=== PATIENT | female | born 2000 | race Two or more races ===

== ENCOUNTER 2021-12-04 23:13 | Emergency (ER) | payer MEDICAID ==
[~2021-12-04] VITALS: Ht 162.6 cm; Wt 88.6 kg
[2021-12-04 23:13] VITALS: BP 114/71
[2021-12-05 00:15] LABS: Basophils # (auto) 0 10 ^3/uL (0-0.2); Basophils % (auto) 0.2 % (0.0-2.0); Eosinophils # (auto) 0.1 10 ^3/uL (0-0.8); Eosinophils % (auto) 1.3 % (0.0-7.0); Hematocrit 33.9 % (36.0-46.0); Hemoglobin 11.1 g/dL (12.2-16.2); Lymphocytes # (auto) 2.4 10 ^3/uL (0.4-5.4); Lymphocytes % (auto) 29.1 % (10.0-50.0); Mean Corpuscular Hgb Conc. 32.8 g/dL (32.0-36.0); Mean Corpuscular Volume 85.3 fL (80.0-100.0); Monocytes # (auto) 0.7 10 ^3/uL (0-1.3); Neutrophils # (auto) 4.9 10 ^3/uL (1.6-8.6); Neutrophils % (auto) 60.4 % (37.0-80.0); Nucleated Red Blood Cells % 0.1 %; Red Blood Cells 3.98 10^6/uL (4.0-5.20); Red Cell Distribution Width 14.1 % (11.8-14.3); White Blood Cell 8.2 10^3/uL (4.4-10.8)
[2021-12-05 00:30] LABS: Albumin 2.5 g/dL (3.4-5.0); BUN/Creatinine Ratio 18.2; Calcium 8.3 mg/dL (8.5-10.1); Potassium 3.8 mmol/L (3.5-5.1)
[2021-12-05 00:33] LABS: Bilirubin, Total 0.3 mg/dL (0.2-1.0); Total Protein 6.2 g/dL (6.4-8.2)
== END 2021-12-05 04:22 | disposition left against medical advice (07) ==
LOC: ER 23:13
DX: R07.89 Other chest pain (principal); Z53.21 Procedure and treatment not carried out due to patient leaving prior to being seen by health care provider
CPT/HCPCS: 36415; 80053; 83735; 84484; 85025; 93005

== ENCOUNTER → 2021-12-10 | Outpatient (CLI) | payer MEDICAID ==
[2021-12-10 09:33] LABS: Basophils # (auto) 0 10 ^3/uL (0-0.2); Basophils % (auto) 0.2 % (0.0-2.0); Eosinophils # (auto) 0.1 10 ^3/uL (0-0.8); Eosinophils % (auto) 1.1 % (0.0-7.0); Hematocrit 34.1 % (36.0-46.0); Hemoglobin 11.3 g/dL (12.2-16.2); Lymphocytes # (auto) 2.2 10 ^3/uL (0.4-5.4); Lymphocytes % (auto) 28.5 % (10.0-50.0); Mean Corpuscular Hemoglobin 27.9 pg (28.0-32.0); Mean Corpuscular Volume 84.5 fL (80.0-100.0); Monocytes # (auto) 0.6 10 ^3/uL (0-1.3); Monocytes % (auto) 7.4 % (0.0-12.0); Neutrophils # (auto) 4.7 10 ^3/uL (1.6-8.6); Neutrophils % (auto) 62.8 % (37.0-80.0); Red Blood Cells 4.04 10^6/uL (4.0-5.20); White Blood Cell 7.5 10^3/uL (4.4-10.8)
== END | disposition home or self-care (01) ==
LOC: LAB 08:53
PROVIDERS: ATTEND Obstetrics & Gynecology
DX: Z34.80 Encounter for supervision of other normal pregnancy, unspecified trimester (principal); Z3A.00 Weeks of gestation of pregnancy not specified
CPT/HCPCS: 36415; 82951; 85025

== ENCOUNTER → 2021-12-17 | Outpatient (CLI) | payer MEDICAID ==
[~2021-12-17] MED LIST: PREN-96 PO
[2021-12-17 10:01] LABS: Basophils # (auto) 0 10 ^3/uL (0-0.2); Basophils % (auto) 0.4 % (0.0-2.0); Eosinophils # (auto) 0.1 10 ^3/uL (0-0.8); Eosinophils % (auto) 1.4 % (0.0-7.0); Hematocrit 34.8 % (36.0-46.0); Hemoglobin 11.6 g/dL (12.2-16.2); Lymphocytes % (auto) 29.7 % (10.0-50.0); Mean Corpuscular Hgb Conc. 33.2 g/dL (32.0-36.0); Mean Corpuscular Volume 84.2 fL (80.0-100.0); Monocytes # (auto) 0.6 10 ^3/uL (0-1.3); Monocytes % (auto) 8.4 % (0.0-12.0); Neutrophils # (auto) 4.1 10 ^3/uL (1.6-8.6); Neutrophils % (auto) 60.1 % (37.0-80.0); Nucleated Red Blood Cells % 0.1 %; Red Blood Cells 4.13 10^6/uL (4.0-5.20); Red Cell Distribution Width 14.2 % (11.8-14.3); White Blood Cell 6.8 10^3/uL (4.4-10.8)
== END | disposition home or self-care (01) ==
LOC: LAB 09:48
PROVIDERS: ATTEND Obstetrics & Gynecology
DX: Z34.80 Encounter for supervision of other normal pregnancy, unspecified trimester (principal); Z3A.00 Weeks of gestation of pregnancy not specified
CPT/HCPCS: 36415; 84112; 85025

== ENCOUNTER 2021-12-18 09:03 | Observation (INO) | payer MEDICAID ==
[2021-12-18] MEDS ORDERED: PREN-96 PO (12:10)
== END 2021-12-18 12:37 | disposition home or self-care (01) ==
LOC: UNDOADMOB 10:14 → LDRP 10:14 → UNDODISOB 12:37
PROVIDERS: ADMIT Obstetrics & Gynecology; ATTEND Obstetrics & Gynecology
DX: O24.419 Gestational diabetes mellitus in pregnancy, unspecified control (principal); Z3A.35 35 weeks gestation of pregnancy
CPT/HCPCS: 59025; 76818; 81002; 82948; 82962; G0378

== ENCOUNTER 2021-12-25 09:16 | Observation (INO) | payer MEDICAID | END 2021-12-25 15:08 | disposition home or self-care (01) | LOC: LDRP 09:16 → UNDOADMOB 09:16 → LDRP 09:21 → UNDODISOB 15:08 | PROVIDERS: ADMIT Obstetrics & Gynecology; ATTEND Obstetrics & Gynecology | DX: O24.419 Gestational diabetes mellitus in pregnancy, unspecified control (principal); Z3A.36 36 weeks gestation of pregnancy | CPT/HCPCS: 59025; 76818; 81002; 82948; 82962; 94760; G0378 ==

== ENCOUNTER 2022-01-01 07:12 | Observation (INO) | payer MEDICAID | END 2022-01-01 13:38 | disposition home or self-care (01) | LOC: LDRP 11:35 | PROVIDERS: ADMIT Obstetrics & Gynecology; ATTEND Obstetrics & Gynecology | DX: O24.419 Gestational diabetes mellitus in pregnancy, unspecified control (principal); Z3A.37 37 weeks gestation of pregnancy | CPT/HCPCS: 59025; 76818; 81002; 82948; 82962; 94760; G0378 ==

== ENCOUNTER 2022-01-08 11:08 | Observation (INO) | payer MEDICAID ==
[2022-01-08] MEDS ORDERED: CEPH-322 PO (13:11)
== END 2022-01-08 13:23 | disposition home or self-care (01) ==
LOC: LDRP 11:08
PROVIDERS: ADMIT Obstetrics & Gynecology; ATTEND Obstetrics & Gynecology
DX: O24.419 Gestational diabetes mellitus in pregnancy, unspecified control (principal); O62.9 Abnormality of forces of labor, unspecified; O21.2 Late vomiting of pregnancy; O34.63 Maternal care for abnormality of vagina, third trimester; N89.8 Other specified noninflammatory disorders of vagina; Z3A.38 38 weeks gestation of pregnancy
CPT/HCPCS: 59025; 76818; 81002; 82948; 82962; G0378

== ENCOUNTER 2022-01-15 23:00 | Inpatient (IN) | payer MEDICAID ==
[~2022-01-15] VITALS: Ht 162.6 cm; Wt 93.4 kg
[~2022-01-15 23:00] MED LIST changes: +CEPH-322 PO
[2022-01-15] MEDS ORDERED: PHISODERM TOP SOLN 240ML BTL TOP PRN (23:15)
[2022-01-15] MEDS ORDERED: LIDOCAINE 2%HCL (LOCAL ANESTH.) INJ 10ml MDV IJ PRN (23:15)
[2022-01-15] MEDS ORDERED: WITCH HAZEL-GLYCERIN PAD TOP PRN (23:15)
[2022-01-15] MEDS ORDERED: BUTORPHANOL TARTRATE 2 MG/1 ML VIAL IV PRN ×2 (23:15)
[2022-01-15] MEDS ORDERED: miSOPROStol 50 MCG per PRE-CUT 1/2 TAB PO PRN (23:15)
[2022-01-15] MEDS ORDERED: PROMETHAZINE HCL 25 MG/ML 1ML IV PRN (23:15)
[2022-01-15] MEDS ORDERED: LACT. RINGERS/OXYTOCIN 20UNITS 500 ML IV ONE ×2 (23:15→23:45)
[2022-01-15] MEDS ORDERED: DERMOPLAST 60ML BOTTLE TOP PRN (23:15)
[2022-01-15 23:35] VITALS: BP 124/84
[2022-01-16 00:24] LABS: Basophils # (auto) 0 10 ^3/uL (0-0.2); Basophils % (auto) 0.2 % (0.0-2.0); Eosinophils # (auto) 0.1 10 ^3/uL (0-0.8); Eosinophils % (auto) 0.8 % (0.0-7.0); Hematocrit 32.9 % (36.0-46.0); Hemoglobin 11.6 g/dL (12.2-16.2); Lymphocytes # (auto) 2.4 10 ^3/uL (0.4-5.4); Lymphocytes % (auto) 28.3 % (10.0-50.0); Mean Corpuscular Hemoglobin 29.5 pg (28.0-32.0); Mean Corpuscular Hgb Conc. 35.3 g/dL (32.0-36.0); Mean Corpuscular Volume 83.7 fL (80.0-100.0); Monocytes # (auto) 0.6 10 ^3/uL (0-1.3); Neutrophils # (auto) 5.4 10 ^3/uL (1.6-8.6); Neutrophils % (auto) 63.7 % (37.0-80.0); Red Blood Cells 3.93 10^6/uL (4.0-5.20); Red Cell Distribution Width 15.3 % (11.8-14.3); White Blood Cell 8.4 10^3/uL (4.4-10.8)
[2022-01-16 00:27] LABS: Urine Bacteria FEW /hpf (None Seen); Urine Blood Negative /uL (Negative); Urine Mucus FEW (None Seen); Urine Specific Gravity 1.023 (1.001-1.035); Urine WBC 44 /hpf (0 - 5)
[2022-01-16] MEDS: LACTATED RINGER'S 1,000 ML IV SCH ×2 (00:35→04:18)
[2022-01-16 00:37] LABS: INR 0.89 (0.9-1.15); Partial Thromboplastin Time 23.2 sec (24.6-33.4)
[2022-01-16 00:42] LABS: Alcohol, Urine < 3.0 mg/dL (0-10); Amphetamine Screen, Urine NEGATIVE (NEGATIVE); Barbiturate Scree,Urine NEGATIVE (NEGATIVE); Benzodiazephine Screen, Urine NEGATIVE (NEGATIVE); Cannabinoid Screen, Urine NEGATIVE (NEGATIVE); Cocaine Screen, Urine NEGATIVE (NEGATIVE); Opiate Scree,Urine NEGATIVE (NEGATIVE); Phencyclidine Screen, Urine NEGATIVE (NEGATIVE)
[2022-01-16 00:49] LABS: Albumin 2.5 g/dL (3.4-5.0); BUN/Creatinine Ratio 17.6; Calcium 8.4 mg/dL (8.5-10.1)
[2022-01-16 00:51] LABS: Bilirubin, Total 0.2 mg/dL (0.2-1.0); Total Protein 5.9 g/dL (6.4-8.2)
[2022-01-16] MEDS ORDERED: ALBUAER3 IN (01:15)
[2022-01-16] MEDS ORDERED: ceFAZolin 2 GM in D5W 5% 100 ML IV ONE (05:00)
[2022-01-16] MEDS ORDERED: ceFAZolin 1GM/50ML 100 ML IV ONE (05:03)
[2022-01-16] MEDS ORDERED: NALOXONE HCL 0.4 MG/ML VIAL IV ONE (06:00)
[2022-01-16] MEDS ORDERED: LIDOCAINE HCL 2 %PF INJ 10ML AMP IJ ONE (06:00)
[2022-01-16] MEDS ORDERED: ePHEDrine SULFATE 50 MG/ML AMP IV ONE (06:00)
[2022-01-16] MEDS ORDERED: fentaNYL CITRATE 100 MCG/2 ML VL IV ONE (06:00)
[2022-01-16] MEDS ORDERED: ROPIVACAINE HCL 200 ML EPI SCH (06:00)
[2022-01-16] MEDS ORDERED: ONDANSETRON ODT 4 MG TAB PO PRN (08:15)
[2022-01-16] MEDS: IBUPROFEN 600 MG TAB PO PRN ×3 (08:58→21:02)
[2022-01-16 11:00] VITALS: BP 118/81
[2022-01-16] MEDS: ACETAMINOPHEN 325 MG TAB PO PRN ×3 (11:27→22:42)
[2022-01-16] MEDS: ceFAZolin 1GM/50ML 50 ML IV SCH ×2 (12:51→21:01)
[2022-01-16 14:55] VITALS: BP 116/80
[2022-01-16 18:52] VITALS: BP 128/85
[2022-01-16] MEDS: TETANUS-DIPTH-ACEL PERTUSSIS 0.5ML SYR Tdap IM ONE ×2 (21:01→21:15)
[2022-01-16 23:00] VITALS: BP 100/64
[2022-01-17] MEDS: ACETAMINOPHEN 325 MG TAB PO PRN ×4 (02:19→20:57)
[2022-01-17 03:00] VITALS: BP 105/65
[2022-01-17] MEDS: IBUPROFEN 600 MG TAB PO PRN ×3 (05:04→18:22)
[2022-01-17] MEDS: ceFAZolin 1GM/50ML 50 ML IV SCH ×2 (05:04→13:00)
[2022-01-17 05:07] LABS: RPR Non Reactive (Non Reactive)
[2022-01-17 07:00] VITALS: BP 114/78
[2022-01-17 11:00] VITALS: BP 112/80
[2022-01-17 15:00] VITALS: BP 116/78
[2022-01-17 19:00] VITALS: BP 119/72
[2022-01-17 23:00] VITALS: BP 131/84
[2022-01-18] MEDS: IBUPROFEN 600 MG TAB PO PRN ×3 (01:52→18:26)
[2022-01-18 03:00] VITALS: BP 123/85
[2022-01-18 06:40] VITALS: BP 123/85
[2022-01-18] MEDS: ACETAMINOPHEN 325 MG TAB PO PRN ×2 (07:02→14:58)
[2022-01-18] MEDS ORDERED: IBU600T PO (07:40)
[2022-01-18 11:20] VITALS: BP 112/70
[2022-01-18 15:00] VITALS: BP 123/86
== END 2022-01-18 18:54 | disposition home or self-care (01) | DRG 560 ==
LOC: NUR 23:00 → LDRP 23:17
PROVIDERS: ADMIT Obstetrics & Gynecology; ATTEND Obstetrics & Gynecology
PROC: 10E0XZZ Delivery of Products of Conception, External Approach (ICD-10-PCS; principal; 2022-01-16)
DX: O24.429 Gestational diabetes mellitus in childbirth, unspecified control (principal); Z37.0 Single live birth; Z20.822 Contact with and (suspected) exposure to COVID-19; Z3A.39 39 weeks gestation of pregnancy
CPT/HCPCS: 36415; 59025; 59409; 80053; 80307; 81001; 81002; 85025; 85610; 85730; 86592; 86850; 86900; 86901; 87426; 90715; 93971; 94760; 96360; 96361; 96365; 96366; G0378; J0690; J2590; J7060

== ENCOUNTER 2023-05-21 14:29 | Emergency (ER) | payer MEDICAID ==
[~2023-05-21] VITALS: Ht 162.6 cm; Wt 88.6 kg
[~2023-05-21 14:29] MED LIST changes: +ALBUAER3 IN; -CEPH-322 PO; +IBU600T PO
[2023-05-21 16:15] VITALS: BP 122/86; PULSE 89; RESP 18; TEMP 97.7; O2SAT 95
[2023-05-21] MEDS ORDERED: IBUP-1456 PO (16:45)
[2023-05-21] MEDS: HYDROcodone-ACET 5/325MG TAB PO ONE (16:47)
== END 2023-05-21 16:55 | disposition home or self-care (01) ==
LOC: ER 14:29
DX: S83.92XA Sprain of unspecified site of left knee, initial encounter (principal); Z79.1 Long term (current) use of non-steroidal anti-inflammatories (NSAID); Z79.899 Other long term (current) drug therapy; X50.1XXA Overexertion from prolonged static or awkward postures, initial encounter; Y93.89 Activity, other specified; Y92.89 Other specified places as the place of occurrence of the external cause; Y99.8 Other external cause status
CPT/HCPCS: 73562

== ENCOUNTER 2024-10-10 17:25 | Inpatient (IN) | payer MEDICAID ==
[~2024-10-10] VITALS: Ht 162.6 cm; Wt 77.1 kg
[~2024-10-10 17:25] MED LIST changes: +IBUP-1456 PO
--- NOTE | 2024-10-10 17:34 | ECG ---
[facility] Test Date: 2024-10-10 Test Time: 17:28:38 Pat Name: ALINA RUBY Department: ED Room: 0205T Gender: F Legal Activity Adjudicator: GP : 2000 Requested By: EMERSON ENCISO Order Number: [id number] Reading MD: Naveed Saunders Measurements Intervals [place] Rate: 97 P: 63 NH: 127 QRS: 63 QRSD: 96 T: 54 QT: 363 QTc: 461 Interpretive Statements Sinus rhythm Artifact in lead(s) II,III,aVR,aVF,V1,V2,V3,V4,V5,V6 and baseline wander in lead(s) V1,V3,V4,V5,V6 Electronically Signed On 10-13-2024 18:58:26 PDT by Naveed Saunders Please click the below link to view image of tracing.
[2024-10-10] MEDS: SODIUM CHLORIDE 0.9% 1,000 ML IV ONE ×4 (18:04→21:45)
[2024-10-10] MEDS: ONDANSETRON HCL 4 MG/2 ML VIAL IV ONE (18:06)
[2024-10-10] MEDS: fentaNYL CITRATE 100 MCG/2 ML VL IV ONE (18:06)
--- NOTE | 2024-10-10 18:09 | ED.PDOC ---
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 Patient has been having some abdominal pelvic cramps and was seen at [place] and had a ectopic on August 17 and had her fallopian tubes removed. Patient has been experiencing some pain on and off but today it was very severe and constant. Per EMS she was slightly hypotensive but simple fluid hydration restored her blood pressure back to baseline prior to my evaluation. Denies vaginal bleed. : Patient gave us the wrong information earlier on re-examined the patient: She said that she had an ectopic on August 03 surgery performed in [facility]. Her last menstrual cycle was August 23. She went to [facility] three days ago for lower pelvic pain. She was discharged home from the the emergency department after an ultrasound was done that showed some nonspecific findings that she is able to communicate to us. Initial Vital Signs: BP: 105/70 HR:100 RR:18 O2:96% Temp:97.9 Past Medical History: RUPTURED ECTOPIC 09/02/24 Past Surgical History: REVIEW OF SYSTEMS: CONSTITUTIONAL: Denies acute: fever, diaphoresis, chills, HEAD: Denies acute: headache, photophobia Eyes: Denies acute: Double vision, vision loss, eye pain, eye discharge. EARS: Denies acute: tinnitus, hearing loss, ear discharge, ear pain, THROAT: Denies acute: sore throat, swelling, difficulty swallowing , pain with swallowing, change in voice. NECK: Denies acute: neck pain, neck swelling, stiff neck. HEART: Denies acute : chest pain, palpitations, LUNGS: Denies acute: SOB, wheezing, cough, hemoptysis ABDOMEN: Denies acute: , diarrhea, melena , hematemesis, hematochezia SKIN: Denies acute: rash, redness, lesions, itchiness. EXTREMITIES: Denies acute: calf pain, numbness, tingling, weakness, denies pain in extremity. Denies acute: Low back pain. Neuro: Denies acute: focal neurological deficit, motor or sensory focal neurological deficit, tremors, seizure like activity, confusion, dizziness, change in mental status, loss of bowel or bladder function, cauda equina like symptoms. : Denies acute: dysuria, hematuria, flank pain, increase in urinary frequency. PSYCH: Denies acute: hallucination, suicidal ideation, homicidal ideation. FEMALE: Denies acute: abnormal vaginal bleeding, foul odor, unusual discharge. PHYSICAL EXAM: General: ----moderate to severe----acute distress, awake and alert. Head: normocephalic, atraumatic. Neck: supple, trachea is midline, no swelling. Throat: Normal phonation. Eyes:, no erythema, no purulent discharge, no proptosis, no icterus. Heart: regular rate, regular rhythm, no significant murmur appreciated. Lungs: no apparent respiratory distress, Able to speak in full sentences. No wheezing, no rhonchi, no crackles. No stridors Clear to auscultation bilaterally. Abdomen: Lower abdomen/pelvic suprapubic tender to palpation, non distended, soft, no guarding, no rebound, + bowel sounds. Neuro: Awake, Alert, oriented to name, self, situation, follows commands GCS=15. Speech is normal. Skin: no petechia, no purpura, no cyanosis, non-pale, not jaundice. Lower extremities: --no - Pitting edema no deformity, no focal swelling, no calf TTP. Makes eye contact. moves all four extremities. Face: no apparent facial droop. ED COURSE: DISCLAIMER: This medical document was created using an electronic medical record system with voice recognition software and computerized dictation system. Although this document has been carefully reviewed, there might still be some phonetic and typographical errors. Occasional wrong-word or "sound-alike" substitutions may have occurred due to the inherent limitations of voice recognition software. These areas are purely typographical due to imperfections of the software programs and do not reflect any compromise in the patient's medical care. Please read the chart carefully and recognize, using context, where these substitutions have occurred. 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 Was a procedure done?: No Differential Diagnosis (H[employer]ING [employer] SUPERVISOR) Vaginal Bleeding: - Complete, - Incomplete, - Ine vitable, - Missed, - Threatened, Abruptio Placentae, Blood Loss Anemia, Cervicitis, Dysmenorrhea, Ectopic , Hormonal, Menorrhagia, Menometrorrhagia, Menstrual Bleeding, Myomatous Uterus, PID, Placenta Previa, Precipitous Hct, Trauma, UTI, Vaginitis X-Ray, Labs, Meds, VS Vital Signs Date Time Temp Pulse Resp B/P (MAP) Pulse Ox O2 Delivery O2 Flow Rate FiO2 10/10/24 21:16 80 10/10/24 20:30 98.7 74 19 108/45 (66) 98 98.7 10/10/24 19:30 97.8 104 33 97/55 (69) 98 97.8 10/10/24 19:30 104 33 98 Nasal Cannula* 2 28 10/10/24 18:43 102 20 99 Room Air* 0 21 10/10/24 18:06 140/107 10/10/24 17:59 98.4 102 25 140/107 (118) 100 98.4 10/10/24 17:52 97.9 100 18 105/70 (82) 96 97.9 10/10/24 17:28 97 Lab Test 10/10/24 21:26 10/10/24 21:19 10/10/24 20:30 10/10/24 20:22 Range/Units Urine Color Light-yellow Yellow Urine Clarity Clear Clear Urine pH 6.0 5.0-9.0 Urine Specific [place] 1.025 1.001-1.035 Urine Protein Negative Negative Urine Ketones 2+ H Negative Urine Blood Negative Negative /uL Urine Nitrite Negative Negative Urine Bilirubin Negative Negative Urine Urobilinogen Normal Negative mg/dL Urine Leukocyte Esterase 2+ Negative /uL Urine RBC 1 0 - 4 /hpf Urine Microscopic WBC 3 0-5 /HPF Urine Squamous Epithelial Cells Few <5 /hpf Urine Bacteria None seen None Seen /hpf Urine Mucus Few None Seen Urine Glucose Normal Normal mg/dL Urine Test Positive Negative White Blood Count 12.0 H 4.4-10.8 10^3/uL Red Blood Count 2.99 L 4.0-5.20 10^6/uL Hemoglobin 8.2 L 8.3 #L 12.2-16.2 g/dL Hematocrit 24.4 L 24.9 #L 36.0-46.0 % Mean Corpuscular Volume 81.6 80.0-100.0 fL Mean Corpuscular Hemoglobin 27.6 L 28.0-32.0 pg Mean Corpuscular Hemoglobin Concent 33.8 32.0-36.0 g/dL Red Cell Distribution Width 14.4 H 11.8-14.3 % Platelet Count 251 140-450 10^3/uL Mean Platelet Volume 7.0 6.9-10.8 fL Neutrophils (%) (Auto) 89.5 H 37.0-80.0 % Lymphocytes (%) (Auto) 7.2 L 10.0-50.0 % Monocytes (%) (Auto) 3.2 0.0-12.0 % Eosinophils (%) (Auto) 0.0 0.0-7.0 % Basophils (%) (Auto) 0.1 0.0-2.0 % Neutrophils # (Auto) 10.8 H 1.6-8.6 10 ^3/uL Lymphocytes # (Auto) 0.9 0.4-5.4 10 ^3/uL Monocytes # (Auto) 0.4 0-1.3 10 ^3/uL Eosinophils # (Auto) 0 0-0.8 10 ^3/uL Basophils # (Auto) 0 0-0.2 10 ^3/uL Nucleated Red Blood Cells 0.0 % Prothrombin Time 12.0 H 9.3-11.8 sec Prothrombin Time INR 1.15 0.9-1.15 Activated Partial Thromboplast Time 21.7 L 24.5-34.5 SEC Magnesium Level 1.5 L 1.6-2.6 mg/dL Lactic Acid Level 1.0 0.4-2.0 mmol/L Test 10/10/24 19:48 10/10/24 17:58 Range/Units Lactic Acid Level 1.8 3.8 *H 0.4-2.0 mmol/L White Blood Count 11.4 H 4.4-10.8 10^3/uL Red Blood Count 3.73 L 4.0-5.20 10^6/uL Hemoglobin 10.3 L 12.2-16.2 g/dL Hematocrit 30.3 L 36.0-46.0 % Mean Corpuscular Volume 81.1 80.0-100.0 fL Mean Corpuscular Hemoglobin 27.6 L 28.0-32.0 pg Mean Corpuscular Hemoglobin Concent 34.0 32.0-36.0 g/dL Red Cell Distribution Width 14.2 11.8-14.3 % Platelet Count 366 140-450 10^3/uL Mean Platelet Volume 6.8 L 6.9-10.8 fL Neutrophils (%) (Auto) 73.6 37.0-80.0 % Lymphocytes (%) (Auto) 19.8 10.0-50.0 % Monocytes (%) (Auto) 6.1 0.0-12.0 % Eosinophils (%) (Auto) 0.3 0.0-7.0 % Basophils (%) (Auto) 0.2 0.0-2.0 % Neutrophils # (Auto) 8.4 1.6-8.6 10 ^3/uL Lymphocytes # (Auto) 2.3 0.4-5.4 10 ^3/uL Monocytes # (Auto) 0.7 0-1.3 10 ^3/uL Eosinophils # (Auto) 0 0-0.8 10 ^3/uL Basophils # (Auto) 0 0-0.2 10 ^3/uL Nucleated Red Blood Cells 0.0 % Sodium Level 138 136-145 mmol/L Potassium Level 3.6 3.5-5.1 mmol/L Chloride Level 108 H 98-107 mmol/L Carbon Dioxide Level 19 L 20-31 mmol/L Anion Gap 11 5-15 Blood Urea Nitrogen 11 9-23 mg/dL Creatinine 0.61 0.550-1.02 mg/dL Glomerular Filtration Rate Calc 127 >90 mL/min BUN/Creatinine Ratio 18.0 10.0-20.0 Serum Glucose 120 H 74-106 mg/dL Calcium Level 8.2 L 8.7-10.4 mg/dL Total Bilirubin 0.6 0.2-1.0 mg/dL Aspartate Amino Transferase (AST) 15 13-40 U/L Alanine Aminotransferase (ALT) 15 7-40 U/L Alkaline Phosphatase 53 46-116 U/L Total Protein 5.4 L 5.7-8.2 g/dL Albumin 3.7 3.2-4.8 g/dL Beta HCG, Quantitative 9159.0 H 1.5-4.2 mIU/mL Microbiology Date/Time Source Procedure Growth Status 10/10/24 20:49 Blood Blood Culture - Preliminary NO GROWTH AFTER 24 HOURS OF INCUBATION. Resulted 10/10/24 20:30 Blood Blood Culture - Preliminary NO GROWTH AFTER 24 HOURS OF INCUBATION. Resulted [facility] [id number] [address] Ph: [phone] DIAGNOSTIC IMAGING Diagnostic Imaging Report : [id number] Signed with Shantalenda PATIENT: ALINA RUBY ACCT: [id number] UNIT: [id number] : 2000 LOC: ER ROOM / BED: / AGE / SEX: 23 / F ADM STATUS: REG ER SERVICE 1743 ORDERING PHYSICIAN: EMERSON ENCISO DO PROCEDURE(s): OB4US - OB ULTRASOUND COMP LESS 14WKS REASON: pelvic pain in early . h/o ectopic. ORDER NUMBER(s): [id number], ACCESSION NUMBER(s): [id number] ADDENDUM ADDENDUM # 1 IMPRESSION SHOULD READ IMPRESSION: 1. Finding suspicious for ectopic in left adnexa with complex fluid- blood within the cul-de-sac and within morrisons pouch. ORIGINAL REPORT OB ULTRASOUND <14 WEEKS: HISTORY: pelvic pain in early . h/o ectopic. TECHNIQUE: Multiple real-time grayscale sonographic images of the pelvis with duplex doppler color flow, spectral and M-mode analysis. TRANSDUCERS: FINDINGS: Limited examination as patient unable to tolerate probe pressure. The uterus measures 9.1 X 6.4 X 5.5 cm. Endometrium measures 8mm. Within the left adnexa, there is a 2.1 cm slightly fluid filled rounded structure. No yolk SAC or embryonic pole. The right ovary is not visualized. There is complex fluid within the cul de sac extending up perihepatic space. IMPRESSION: 1. Finding suspicious for right that topic in the left adnexa with complex fluid- blood within the cul-de-sac and within morrisons pouch. Findings discussed with dr. Enciso at 805PM at 10/10/24. ATED BY: AMMY NIX MD DICTATED DATE/TIME: 10/10/242130 SIGNED BY: AMMY NIX MD SIGNED DATE/TIME: 10/10/242130 CC: OB ULTRASOUND <14 WEEKS: HISTORY: pelvic pain in early . h/o ectopic. TECHNIQUE: Multiple real-time grayscale sonographic images of the pelvis with duplex doppler color flow, spectral and M-mode analysis. TRANSDUCERS: FINDINGS: Limited examination as patient unable to tolerate probe pressure. The uterus measures 9.1 X 6.4 X 5.5 cm. Endometrium measures 8mm. Within the left adnexa, there is a 2.1 cm slightly fluid filled rounded structure. No yolk SAC or embryonic pole. The right ovary is not visualized. There is complex fluid within the cul de sac extending up perihepatic space. IMPRESSION: 1. Finding suspicious for right that topic in the left adnexa with complex fluid- blood within the cul-de-sac and within morrisons pouch. Findings discussed with dr. Enciso at 805PM at 10/10/24. ATED BY: AMMY NIX MD DICTATED DATE/TIME: 10/10/242009 SIGNED BY: AMMY NIX MD SIGNED DATE/TIME: 10/10/242009 CC: Time of 1ST Reevaluation: 19:36 Reevaluation 1ST: Unchanged Time of 2ND Reevaluation: 20:05 (The case was discussed with the OB Gyne on- call team (HPI, physical exam, labs and diagnostic tests that were available at the time of disposition, ED course, treatment plan) on the phone. They agreed to evaluate the patient here in the ED. No further recommendations. They agree that we should admit the patient and they will follow in consult. Dr. Clinton. ) Reevaluation 2ND: Unchanged Time of 3RD Reevaluation: 21:04 (I spoke with Dr. Clinton is again at this time. I updated him of in the H&H and the patient's status. He said that the team for the OR is coming in at 10:00 pm. to take her to the operating room.) Patient Education/Counseling: Diagnosis, Treatment Family Education/Counseling: No Family Present Comments Patient presented with the above HPI.--pelvic pain----workup was initiated. patient was found with the above mentioned diagnosis. the following medications were ordered: please refer to order lists of meds and tests obtained by myself Dr. Enciso. Patient ED course and VS have been stabilized. Patient has been reassessed in the ED and remained in a stable condition. Pertinent incidental findings were discussed with the patient and/or family. Patient/family voices understanding and is agreeable with plan. Patient has been observed in the ED adequate length of time to insure improvement/stability. Escalation of care considered: Consideration of escalation to observation or admission H&H was dropping. Type and screen and blood products were arrange for the patient. Ultrasound shows free blood products in the pelvis. This is most likely a complication of the previous ruptured ectopic versus other etiologies. OB Gyne were consulted. Patient was ADMITTED to the medicine team for further evaluation and treatment of their presentation. Patient was taken directly to the OR. All the reports of any imaging studies that were ordered by myself were reviewed by myself. Departure 1 Departure Time of Disposition: 20:04 Impression: Primary Impression: Ruptured ectopic Additional Impression: Anemia Disposition: 09 ADMITTED INPATIENT Admit to: Tele Condition: Guarded Discharged With: Self Critical Care Note Critical Care Time?: Yes (90 min-critical care time only) I personally scribed for EMERSON ENCISO DO ([email or web address]) on 10/10/24 at 18:33. Electronically submitted by Bharti Higgins ([email or web address]). I personally scribed for EMERSON ENCISO DO ([email or web address]) on 10/10/24 at 19:36. Electronically submitted by Bernarda Maynard ([facility]). EMERSON ENCISO DO Oct 10, 2024 18:09
[2024-10-10 18:18] LABS: Hematocrit 30.3 % (36.0-46.0); Hemoglobin 10.3 g/dL (12.2-16.2); Mean Corpuscular Hemoglobin 27.6 pg (28.0-32.0); Mean Corpuscular Volume 81.1 fL (80.0-100.0); Nucleated Red Blood Cells % 0.0 %
[2024-10-10 18:37] LABS: Alanine Aminotransferase 15 U/L (7-40); Albumin 3.7 g/dL (3.2-4.8); Alkaline Phosphatase 53 U/L (46-116); Anion Gap 11 (5-15); BUN/Creatinine Ratio 18.0 (10.0-20.0); Blood Urea Nitrogen 11 mg/dL (9-23); Potassium 3.6 mmol/L (3.5-5.1); Sodium 138 mmol/L (136-145)
[2024-10-10 18:38] LABS: Bilirubin, Total 0.6 mg/dL (0.2-1.0); Chloride 108 mmol/L (98-107)
[2024-10-10 18:39] LABS: Calcium 8.2 mg/dL (8.7-10.4); Carbon Dioxide 19 mmol/L (20-31); Glucose 120 mg/dL (74-106); Total Protein 5.4 g/dL (5.7-8.2)
[2024-10-10 18:41] LABS: Lactic Acid w/Reflex 3.8 mmol/L (0.4-2.0)
[2024-10-10 18:43] VITALS: PULSE 102; RESP 20; O2SAT 99
[2024-10-10 19:30] VITALS: PULSE 104; RESP 33; O2SAT 98
--- NOTE | 2024-10-10 20:12 | DVH ---
OB ULTRASOUND <14 WEEKS: HISTORY: pelvic pain in early . h/o ectopic. TECHNIQUE: Multiple real-time grayscale sonographic images of the pelvis with duplex doppler color fl ow, spectral and M-mode analysis. TRANSDUCERS: FINDINGS: Limited examination as patient unable to tolerate probe pressure. The uterus measures 9.1 X 6.4 X 5.5 cm. Endometrium measures 8mm. Within the left adnexa, there is a 2.1 cm slightly fluid filled rounded structure. No yolk SAC or emb ryonic pole. The right ovary is not visualized. There is complex fluid within the cul de sac extending up perihepatic space. IMPRESSION: 1. Finding suspicious for right that topic in the left adnexa with complex fluid- blood within the cu l-de-sac and within morrisons pouch. Findings discussed with dr. Leiva at 805PM at 10/10/24.
[2024-10-10] MEDS: PIPERACILLIN-TAZOB 3.375GM 100 ML IV ONE (20:25)
[2024-10-10 20:50] LABS: Hematocrit 24.9 % (36.0-46.0); Hemoglobin 8.3 g/dL (12.2-16.2)
--- NOTE | 2024-10-10 21:40 | DVHHP2 ---
History of Present Illness History of Present Illness Patient is 23 years old female with past medical history of , ruptured ectopic in August 03 2024 came with a complaint of intractable abdominal pain. As per patient she has been having abdominal pain for last 1 and half weeks for which she went to [facility] 3 days before and she was diagnosed with ectopic (?Ovarian Cyst) at [facility] and [place] recommended for further evaluation. Patient reported today her pain at work got worse, 9/10, constant, sharp, aggravated with movement, no relieving factor. Patient also endorsed nausea and vomiting 2 times, no blood. Patient also reported she had an ectopic in August 03, 2024 and she went to [facility] where she had her fallopian tube removed. Later on patient reported she actually went to [facility] for ectopic pregnency in july. Patient also reported dysuria for 3 days and feeling dizzy and likely she had a syncope at work today but she is not sure. As per patient her last menstrual period was August 22, 2024. Patient reported she had 2 miscarriages before but could not give exact timing. On arrival patient was tachycardic with a pulse 104, initial blood pressure was 105/70, later on blood pressure dropped to 97/55. Initial lab workup revealed WBC 11.4, hemoglobin 10.3> 8.3, lactic acid 3.8> 1.8, beta hCG 9159. Ultrasound no revealed left adnexa 2.1 cm slightly fluid-filled round structure, fluid in cul-de-sac extennding to perihepatic space. Post admission at the ER patient had 2 units of blood transfusion. Patient also went through surgical intervention for-Diagnostic laparoscopy remove ectopic evacuation of hemoperitoneum left salpingectomy, left ampullary ectopic removal, lysis of adhesions Postoperative diagnosis-Left ampullary region ectopic ruptured active bleeding, 700 cc, hemoperitoneum, tissue consistent with ectopic/decidua Operative surgeon Prabhu Goldberg MD Past Medical History History of ectopic Family History And has diabetes mellitus, Past Social History Patient occasional alcoholic, denies smoking or substance abuse, lives with her boyfriend Review of Systems Review of Systems Allergy- NKDA Patient was seen today at the bedside. Cardiovascular- deny acute chest pain or cough or palpitation Respiratory denies cough or wheezing Gastrointestinal- denies any rectal bleeding, Musculoskeletal-denies acute joint swelling or tenderness or redness Neurological- denies acute dysarthria, dysphagia, change in vision Psychiatry- denies depression or SI or HI Skin- denies acute rash or purpura Allergies: Coded Allergies: NO KNOWN ALLERGIES (Unverified , 01/15/22) Medications Current Medications Medications Dose Ordered Sig/Bee Route Start Time Stop Time Status Last Admin Dose Admin Sodium Chloride 1,000 ml @ 120 mls/hr Q8H20M IV 10/10/24 21:45 UNV Ondansetron HCl 4 mg Q4HP PRN IV 10/10/24 21:45 UNV Exam Vital Signs Vital Signs Date Time Temp Pulse Resp B/P (MAP) Pulse Ox O2 Delivery O2 Flow Rate FiO2 10/10/24 19:30 97.8 104 33 97/55 (69) 98 97.8 10/10/24 19:30 Nasal Cannula* 2 28 Exam General examination- patient in pain HEENT- PEERLA, no acute nasal discharge Cardiovascular- S1-S2 audible, rate and rhythm regular, no murmur Respiratory- CTAB, no wheeze or rhonchi Abdominal examination-+ diffuse lower abdominal tenderness+++, bowel sound+. Nondistended Musculoskeletal-no acute joint swelling or tenderness or redness Lower extremity- no leg edema Neurological- cranial nerves intact, no acute dysarthria or dysphagia Psychiatry- denies depression or SI or HI Skin- no acute rash or purpura Labs/Xrays Labs Test 10/10/24 21:26 10/10/24 21:19 10/10/24 20:30 10/10/24 20:22 Range/Units Lactic Acid Level 1.0 0.4-2.0 mmol/L Hemoglobin 8.3 #L 12.2-16.2 g/dL Hematocrit 24.9 #L 36.0-46.0 % Test 10/10/24 17:58 Range/Units White Blood Count 11.4 H 4.4-10.8 10^3/uL Red Blood Count 3.73 L 4.0-5.20 10^6/uL Mean Corpuscular Volume 81.1 80.0-100.0 fL Mean Corpuscular Hemoglobin 27.6 L 28.0-32.0 pg Mean Corpuscular Hemoglobin Concent 34.0 32.0-36.0 g/dL Red Cell Distribution Width 14.2 11.8-14.3 % Platelet Count 366 140-450 10^3/uL Mean Platelet Volume 6.8 L 6.9-10.8 fL Neutrophils (%) (Auto) 73.6 37.0-80.0 % Lymphocytes (%) (Auto) 19.8 10.0-50.0 % Monocytes (%) (Auto) 6.1 0.0-12.0 % Eosinophils (%) (Auto) 0.3 0.0-7.0 % Basophils (%) (Auto) 0.2 0.0-2.0 % Neutrophils # (Auto) 8.4 1.6-8.6 10 ^3/uL Lymphocytes # (Auto) 2.3 0.4-5.4 10 ^3/uL Monocytes # (Auto) 0.7 0-1.3 10 ^3/uL Eosinophils # (Auto) 0 0-0.8 10 ^3/uL Basophils # (Auto) 0 0-0.2 10 ^3/uL Nucleated Red Blood Cells 0.0 % Sodium Level 138 136-145 mmol/L Potassium Level 3.6 3.5-5.1 mmol/L Chloride Level 108 H 98-107 mmol/L Carbon Dioxide Level 19 L 20-31 mmol/L Anion Gap 11 5-15 Blood Urea Nitrogen 11 9-23 mg/dL Creatinine 0.61 0.550-1.02 mg/dL Glomerular Filtration Rate Calc 127 >90 mL/min BUN/Creatinine Ratio 18.0 10.0-20.0 Serum Glucose 120 H 74-106 mg/dL Calcium Level 8.2 L 8.7-10.4 mg/dL Total Bilirubin 0.6 0.2-1.0 mg/dL Aspartate Amino Transferase (AST) 15 13-40 U/L Alanine Aminotransferase (ALT) 15 7-40 U/L Alkaline Phosphatase 53 46-116 U/L Total Protein 5.4 L 5.7-8.2 g/dL Albumin 3.7 3.2-4.8 g/dL Beta HCG, Quantitative 9159.0 H 1.5-4.2 mIU/mL Assessment/Plan Assessment/Plan Assessment and plan # Hypovolemic shock likely due to ruptured ectopic with hemoperitoneum -patient with a ruptured ectopic -ultrasound- Within the left adnexa, there is a 2.1 cm slightly fluid filled rounded structure. -status post IV bolus normal saline -continue IV normal saline as prescribed -continue IV antibiotic Zosyn as prescribed -pending blood culture, urine culture # Left ampullary region ruptured ectopic -status post-Diagnostic laparoscopy remove ectopic evacuation of hemoperitoneum left salpingectomy, left ampullary ectopic removal, lysis of adhesions -status post 2 units blood transfusion -monitor vitals -I&O -continue IV normal saline as prescribed # hemoperitoneum --status post-Diagnostic laparoscopy remove ectopic evacuation of hemoperitoneum left salpingectomy, left ampullary ectopic removal, lysis of adhesions -status post 2 units blood transfusion -monitor vitals -I&O # severe anemia likely due to ruptured ectopic -status post 2 units blood transfusion -monitor CBC, BNP # Lactic acidosis likely due to hypovolemic shock -lactic acid 3.8> 1.8 -continue IV normal saline as prescribed -pending blood culture, urine culture # acute abdomen due to ruptured ectopic with hemoperitoneum --status post-Diagnostic laparoscopy remove ectopic evacuation of hemoperitoneum left salpingectomy, left ampullary ectopic removal, lysis of adhesions -status post 2 units blood transfusion -continue IV normal saline as prescribed -monitor vitals -I&O Diet- Clear liquid diet Goals of care, Code status Full Code ; discussed with >15 minutes PUD prophylaxis: Pantoprazole DVT prophylaxis: Patient ambulating Plan discussed with Dr. Stearns , nursing staff, Total time spent on patient evaluation, chart review, assessment and plan, discussion discussion >35 minutes Plan discussed with: Patient, Spouse, Other (RN) My Orders Orders - ANDRIA PACHECO RESIDENT Procedure Category Date Status Time Admit ADMIT 10/10/24 Transmitted 21:33 Code Status CODE 10/10/24 Transmitted 21:33 Sodium Chloride 0.9% PHA 10/10/24 Logged 21:45 Ondansetron Hcl PHA 10/10/24 Logged (Zofran) 21:45 Complete Blood Count LAB 10/11/24 Verified 04:00 Comprehensive LAB 10/11/24 Verified Metabolic Panel 04:00 Npo (Nothing By DIET 10/11/24 Transmitted Mouth) Diet Breakfast Notify Of Changes VALERI 10/10/24 In Process From Base 21:33 Ultrasound Technologist Sonographer For VALERI 10/10/24 In Process 24 Hours 21:33 Date of Service: Oct 10, 2024 Billing Provider: TAYA STEARNS MD Common Visit Codes: 53087-[id number] INP/OBS CARE (HIGH) Secondary Visit Codes: [id number] CARE PLAN 30 MINUTES ANDRIA PACHECO RESIDENT Oct 10, 2024 21:40
[2024-10-10] MEDS ORDERED: MORPHINE SULFATE INJ 2 MG/ml SYRG IV PRN ×2 (21:45→23:00)
[2024-10-10] MEDS: LIDOCAINE W/ EPINEPHRINE 1% 20ML VIAL ONE (21:48)
[2024-10-10] MEDS: PANTOPRAZOLE 40 MG/10 ML VIAL INJ IV ONE (21:59)
[2024-10-10 22:15] LABS: Hematocrit 24.4 % (36.0-46.0); Hemoglobin 8.2 g/dL (12.2-16.2); Mean Corpuscular Hemoglobin 27.6 pg (28.0-32.0); Mean Corpuscular Volume 81.6 fL (80.0-100.0); Nucleated Red Blood Cells % 0.0 %
[2024-10-10 22:17] LABS: Urine Protein, UAD Negative (Negative)
[2024-10-10 22:24] LABS: INR 1.15 (0.9-1.15); Partial Thromboplastin Time 21.7 SEC (24.5-34.5); Prothrombin Time 12.0 sec (9.3-11.8)
[2024-10-10] MEDS ORDERED: PHENYLEPHRINE HCL 10 MG/ML VL ONE (22:25)
[2024-10-10] MEDS ORDERED: fentaNYL CITRATE 100 MCG/2 ML VL ONE (22:25)
[2024-10-10] MEDS ORDERED: ROCURONIUM 10MG/ML 10ML VIAL IV ONE (22:25)
[2024-10-10] MEDS ORDERED: LIDOCAINE 2% (LOCAL ANESTH.) PF 5ml SDV ONE (22:25)
[2024-10-10] MEDS ORDERED: PROPOFOL 10 MG/ML 20 ML IV ONE (22:25)
[2024-10-10] MEDS ORDERED: KETAMINE 50mg/ML 1ml syringe ONE (22:25)
[2024-10-10] MEDS ORDERED: GLYCOPYRROLATE 0.2 MG/ML 1ML VIAL ONE (22:25)
[2024-10-10] MEDS ORDERED: MIDAZOLAM HCL 2MG/2ML 2ml VIAL (1mg/ml) ONE (22:25)
[2024-10-10] MEDS: ceFAZolin 2 GM/D5W50ml 50 ML IV ONE (22:25)
[2024-10-10] MEDS ORDERED: HYDROmorphone HCL 2 MG/ML VL/or syr ONE (22:26)
--- NOTE | 2024-10-10 22:33 | DVHHP2 ---
OB CC & HPI Date Date of Admission: Oct 10, 2024 Patient Identification: : 4 Para: 2 Chief Complaints: Reason for admission: other (Severe abdominal pelvic pain ultrasound appears to be ruptured ectopic history of previous ectopic with partial salpingectomy. Last menstrual period 08/2019 25 blood type Rh positive patient has no further desire for children. She apparently was seen at [facility] within last 72 hours diagnosis ovarian cyst in discharged home. Core on arrival [id number] no white count or fever. Patient is writhing in bed to keep peritoneal signs. We will ultrasound shows what appears to be free fluid in the pelvis.) History of Present Complaints As above full evaluation in ER diagnosis ruptured ectopic . Consent we discussed risks benefits complications alternatives that limb infection bleeding anesthesia acute chronic pain to have to adjacent organs transfusion and risk associated hepatitis HIV transfusion reaction , PE DVT NE stroke and . We specifically discussed despite her desire for any further fertility: decreased fertility in the possibility of needing in-vitro fertilization the future if she should change her mind were or desire more children. We will questions answered and encouraged Past Medical History Cardiac: No pertinent Hx Pulmonary: Asthma Central Nervous System: No pertinent Hx GI: No pertinent Hx Hemotology/Oncology: No pertinent Hx Hepatobiliary: No pertinent Hx Psychiatric: No pertinent Hx Musculoskeletal: No pertinent Hx Rheumotologic: No pertinent Hx Infectious Disease: No peritnent Hx ENT: No pertinent Hx Renal/: No pertinent Hx Endocrine: No pertinent Hx Dermatology: No pertinent Hx Past Surgical History: Laparotomy (Open laparotomy removal of partial fallopian tube and ectopic.), Other OB History OB History Care: None Ultrasounds: Abnormal US findings (Free fluid adnexal mass consistent with a possible ectopic) Allergies: Coded Allergies: NO KNOWN ALLERGIES (Unverified , 01/15/22) Home Meds Active Scripts Ibuprofen (Ibuprofen) 800 Mg Tab, 1 TAB PO TID, #30 TAB Prov:MABEL PHOENIX 05/21/23 Ibuprofen Micronized (MOTRIN TABLET) 600 Mg Tb, 600 MG PO Q6HP PRN, #20 TAB Prov:GREY,ROMEZMA Y DO 01/18/22 Reported Medications Albuterol Sulfate (VENTOLIN MDI) 90 Mcg Ih, 90 MCG IN, INH 01/16/22 Vit W/ Ferrous Fumara ( One Daily) Daily Tab, 1 TAB PO DAILY, #90 TAB 3 Refills 12/18/21 Current Medications Current Medications Medications (Trade) Dose Ordered Sig/Bee Route PRN Reason Start Time Stop Time Status Last Admin Sodium Chloride 1,000 ml @ 120 mls/hr Q8H20M IV 10/10/24 22:45 Ondansetron HCl (Zofran) 4 mg Q4HP PRN IV NAUSEA / VOMITING 10/10/24 21:45 Pantoprazole Sodium (Protonix) 40 mg DAILY IV 10/11/24 10:00 Morphine Sulfate 1 mg Q4HP PRN IV SEVERE PAIN (7-10 PAIN SCALE) 10/10/24 21:45 Family & Social History Family/Social History Blood Type: A+ Rubella: unknown RPR/VDRL: Unknown GBS Status: Unknown HBsAG: Unknown Review of Systems Constitutional: No symptom reported Ears, Nose, & Throat: No symptom reported Eyes: No symptom reported Pulmonary/Respiratory: No symptom reported Cardiovascular: No symptom reported Gastrointestinal: No symptom reported Genitourinary: No symptom reported Musculoskeletal: No symptom reported Skin: No symptom reported Psychiatric: No symptom reported Endocrine: No symptom reported Hemotologic/Lymphatic: No symptom reported OB Admission Exam Physical Exam Vitals: Vital Signs Date Time Temp Pulse Resp B/P (MAP) Pulse Ox O2 Delivery O2 Flow Rate FiO2 10/10/24 21:16 80 10/10/24 19:30 97.8 33 97/55 (69) 98 97.8 10/10/24 19:30 Nasal Cannula* 2 28 HEENT: TMs Normal, Fontanelles Normal, Nasal Mucosa Normal, Eyes non-injected, Oropharynx Normal, PERRLA, Moist Membranes, EOMI Heart: Rhythm Normal Lungs: Clear Abdomen: Non tender Extremities: Normal Reflexes: Normal Pelvic Exam: Positive cervical motion tenderness bilateral adnexal pain severe peritoneal signs positive rebound and guarding. Hypoactive bowel sounds well-healed Pfannenstiel incision Cervical Dilatation: other (Closed) OB Plan Plan Admitting Diagnosis: Hypovolemic, acute abdomen, ruptured ectopic Plan: Other (Emergent 2-0 OR now for diagnostic laparoscopy possible open l aparotomy remove ectopic possible right and left salpingo oophorectomy) Other Plan: All questions answered and encouraged the patient had only wants to proceed. Visit Coding OBGYN Date of Service: Oct 10, 2024 Billing Provider: CLAYTON BOTELLO DO [employer] Common Visit Codes: [id number] OBS CARE (HIGH) [employer] Procedure Codes: 43722-[id number] TX OF ECTOPIC PREG CLAYTON BOTELLO DO Oct 10, 2024 22:33
[2024-10-10] MEDS: SODIUM CHLORIDE 0.9% 1,000 ML IV SCH (22:45)
--- NOTE | 2024-10-10 22:46 | DVHOP2 ---
Operative Report - 2 Report Details Date: 10/10/24 Preop Diagnosis: A ruptured ectopic , hypovolemic shock, acute abdomen pelvis Postop Diagnosis: Left ampullary region ectopic ruptured active bleeding, 700 cc hemoperitoneum, tissue consistent with ectopic/decidua Surgeon: Ashlyn Pelletier Anesthesiologist: Ever SELLERS Anesthesia: General Drains: Mendoza catheter Implant: None Consent: The patient was informed of the risks and benefits of the procedure. These include but are not limited to complications of anesthesia, postoperative infection, incomplete relief of symptoms, recurrence of symptoms, damage to blood vessels, nerves and tendons, deep venous thrombosis, pulmonary embolism and possible need for repeat surgery in the future. Complications: None Estimated Blood Loss: 50 cc Hemoperitoneum pre-existing a 700 cc Fluids: See anesthesia log Findings: Ruptured left ampullary region fallopian tube ectopic it appeared to be from the same size as her previous ectopic as there was Rosy remnant of tube left. Pin to seal colonic adhesions filmy left adnexa Indications for Surgery: Acute abdomen, ruptured ectopic hemoperitoneum Name of Procedure Performed Diagnostic laparoscopy remove ectopic evacuation of hemoperitoneum left salpingectomy, left ampullary ectopic removal, lysis of adhesions Procedure Details Procedure Details: Patient taken the operating placed in supine position general anesthesia performed without difficulty she was prepped draped sterile fashion and gently placed in Ajith strips exam; exam under anesthesia shows cervix closed no bleeding; the anterior cervical lip was grasped with a sharp tooth tenaculum uterus sounded 7 cm ; I was a easily able to pass a Kroner uterine manipulator without dilation to 6 cm. Perineum draped gloves changed and gown changed and attention turned to the abdomen infraumbilical incision was made with 11 blade rectus fascia tented anteriorly with towel clamp Veress needle placed water test flowed easily ; pneumoperitoneum 5 L performed. 5 mm initial Visiport bladeless was then placed under direct visualization without any evidence of internal organ damage. It was immediately evident that she had proximally 700 cc hemoperitoneum ; at this point2 additional ports were placed under direct visualization all bladeless right and left lower quadrants. The initial 5 mm umbilical port was extended and exchanged 12 port under direct visualization . Camera was placed through 5 mm port any atraumatic grasper was placed through the other and alternating with suction irrigation hemoperitoneum removed; it was evident this point that she had left fallopian tube ruptured ectopic ; which appeared consistent with a previous partial left salpingectomy. The remaining portion fallopian tube was severely damaged and actively bleeding elected at th is point to fire Endo-NARENDRA 60 vascular load across the mesenteric portion of the tube effectively removing the remnant tube with the what appeared to be ectopic. I also found some tissue on the omentum which was consistent with possible decidual tissue and/or ectopic. Specimens were portion of the left tube as well as ectopic tissue. A staple margin was then clipped with large clips to assure hemostasis was again copiously irrigated some lysis of adhesions was performed from her previous surgery and anterior cul-de-sac as well as right and left cul-de-sac other structures in the abdomen. Pictures were taken before and after; Normal bowel liver and stomach edge. This point we placed a specimen then I flat 10 mm endobag and it was brought out through the 12 port 12 port was closed with Jose Antonio Lyons 0 Vicryl effectively closing rectus fascia. Subcu 4-0 Vicryl was then used to close the skin is well as Dermabond placed. Patient will have an abdominal binder placed in recovery room and she will be stabilized. She was given 1 unit packed RBCs intraoperatively. She will be getting serial CBCs and close monitoring on tele postoperatively. I then met Andrea her also obtaining his phone number [phone]; we discussed findings and procedure were discussed emphasizing importance of early follow up and potential serial quant HCG; she will need to be seen postoperatively on a weekly basis if no villi on pathology. Re-emphasized the fact that they should avoid 3 months and that her risk for ectopic use initially increased having 2 previous. Given the fact that I am part-time here on the weekend covering [facility]. She will be handed off to Dr. Hi and the hospitalist team in AM . The postop potential complications were reviewed as well not limited to severe pain excessive bleeding decreased level of consciousness or fever persistent over 100 if these should occur she is to be seen in the ER immediately. Counseled her to avoid at least 3 months and also if she were to get she should be seen immediately to rule out ectopic. Specimen: Left partial Fallopian tube; ectopic decidual appearing tissue. Condition Guarded Disposition Tele CLAYTON PELLETIER DO Oct 10, 2024 22:46
--- NOTE | 2024-10-10 22:49 | DVH ---
CHEST RADIOGRAPH Indication: Preop Technique: Single frontal view of the chest was obtained COMPARISON: None FINDINGS: Lines and Tubes: Right peripherally inserted central catheter terminates in the expected location of the cavoatrial junction. Lungs: Clear Pleura: No effusion. No pneumothorax. Cardiomediastinal contours: Borderline cardiomegaly. Bones: Unremarkable. Cervical spine discectomy and fusion hardware noted. IMPRESSION: 1. No acute disease. 2. Borderline cardiomegaly. 3. Right PICC.
[2024-10-10] MEDS ORDERED: ACETAMINOPHEN 500 MG TAB or CAP PO PRN (23:00)
[2024-10-10] MEDS ORDERED: NITROGLYCERIN 0.4 MG SL TAB SL PRN (23:00)
[2024-10-10] MEDS ORDERED: ONDANSETRON HCL 4 MG/2 ML VIAL IV PRN (23:00)
[2024-10-10] MEDS ORDERED: SUGAMMADEX 200mg/2ml Vial (100MG/ML) IV ONE (23:32)
[2024-10-10] MEDS: BUPIVACAINE HCL 0.25% P/F 10 ML VIAL ONE (23:35)
[2024-10-10] MEDS: FAMOTIDINE (10MG/ML) 2ML VL IV ONE (23:39)
[2024-10-10 23:58] VITALS: PULSE 100; RESP 16; O2SAT 100
[2024-10-11] VITALS (9 sets, daily range): BP systolic 96–130; BP diastolic 55–78; PULSE 87–111; RESP 16–20; TEMP 97.6–99; O2SAT 97–100
[2024-10-11] MEDS ORDERED: HYDROmorphone HCL 2 MG/ML VL/or syr IV PRN (00:15)
[2024-10-11] MEDS: ACETAMINOPHEN IV 1000 MG/100ML (10MG/ML) IV ONE (00:25)
[2024-10-11] MEDS ORDERED: FERR325T20 PO (01:49)
[2024-10-11] MEDS: ONDANSETRON HCL 4 MG/2 ML VIAL IV PRN (01:55)
[2024-10-11] MEDS: MORPHINE SULFATE 4 MG/ML SYR/VIAL IV PRN (01:55)
[2024-10-11] MEDS: SODIUM CHLORIDE 0.9% 1,000 ML IV SCH (02:13)
[2024-10-11] MEDS ORDERED: FUROSEMIDE 20 MG/2 ML VIAL IV ONE (02:15)
[2024-10-11] MEDS: FUROSEMIDE 40 MG/4 ML VIAL IV ONE (02:47)
[2024-10-11] MEDS: MAGNESIUM SULFATE 1GM/100ML 100 ML IV ONE ×2 (02:48→06:55)
--- NOTE | 2024-10-11 05:26 | DVHPN2 ---
Subjective Date Seen: Oct 11, 2024 Post op day Post op day: 1 Patient reports: Feels better Nursing reports: No new complaints General: Normal HNT: Normal Cardiovascular: Normal Respiratory: Normal Gastrointestinal: Normal Genitourinary: Normal Musculoskeletal: Normal Neurological: Normal Objective Vitals Vital Sign Date Time Temp Pulse Resp B/P (MAP) Pulse Ox O2 Delivery O2 Flow Rate FiO2 10/11/24 02:47 120/83 10/11/24 01:55 92 16 10/11/24 01:43 98 Room Air* 0 21 10/10/24 23:58 97.6 97.6 Total Intake and Output 10/10/24 10/10/24 10/11/24 15:00 23:00 07:00 Intake Total 1000 ml Output Total 350 ml Balance 1000 ml -350 ml Medications Current Medications Medications Dose Ordered Sig/Bee Route Start Time Stop Time Status Last Admin Dose Admin Sodium Chloride 1,000 ml @ 120 mls/hr Q8H20M IV 10/10/24 22:45 Ondansetron HCl 4 mg Q4HP PRN IV 10/10/24 21:45 10/11/24 01:55 4 MG Pantoprazole Sodium 40 mg DAILY IV 10/11/24 10:00 Ondansetron HCl 4 mg Q4HP PRN IV 10/10/24 23:00 Morphine Sulfate 2 mg Q4HP PRN IV 10/10/24 23:00 10/11/24 01:55 2 MG Acetaminophen 500 mg Q6HP PRN PO 10/10/24 23:00 Sodium Chloride 1,000 ml @ 125 mls/hr Q8H IV 10/10/24 23:00 10/11/24 02:13 125 MLS/HR Nitroglycerin 0.4 mg Q5MINP PRN SL 10/10/24 23:00 Morphine Sulfate 2 mg Q30M PRN IV 10/10/24 23:00 Acetaminophen/ Hydrocodone Bitart 1 tab Q4HP PRN PO 10/10/24 23:00 Piperacillin Sod/ Tazobactam Sod 100 ml @ 25 mls/hr Q8HR IV 10/11/24 06:00 General: Normal Head/Eyes: Normal Neck: Normal Lungs: Normal Cardiovascular: Normal Abdominal: Soft (Positive bowel sounds wound clean dry intact) Musculoskeletal: Normal Extremities: Normal Labs and Microbiology Laboratory Tests 10/10/24 21:19 10/10/24 17:58 Test 10/10/24 17:58 Range/Units Serum Glucose 120 H 74-106 mg/dL Ass/Plan Assessment/Plan Postop day [address] Teagan Diggs and/or myself can be called I will be leaving [address] but seal the we will be able to be called by phone cell [phone] Dr. Clinton, if physicians needed in person and/or for further consultation Dr. Hi aware of the case and available. Prognosis: Excellent Plan discussed with Patient and Visit Coding Surgery Date of Service if different f: Oct 11, 2024 Billing Provider: CLAYTON CLINTON DO Surgery Visit Codes: NOT BILLABLE CLAYTON CLINTON DO Oct 11, 2024 05:26
[2024-10-11] MEDS: PIPERACILLIN-TAZOB 3.375GM 100 ML IV SCH (05:45)
[2024-10-11] MEDS: HYDROcodone-ACET 10/325MG TAB PO PRN (05:56)
--- NOTE | 2024-10-11 06:35 | ECG ---
[facility] Test Date: 2024-10-10 Test Time: 21:16:56 Pat Name: ALINA RUBY Department: ED Room: 0205T A Gender: F Front Office Representative: LAKESHA : 2000 Requested By: EMERSON ENCISO Order Number: [id number] Reading MD: Naveed Saunders Measurements Intervals [place] Rate: 80 P: 63 MS: 103 QRS: 66 QRSD: 80 T: 48 QT: 399 QTc: 461 Interpretive Statements Sinus rhythm Short MS interval Electronically Signed On 10-13-2024 18:59:34 PDT by Naveed Saunders Please click the below link to view image of tracing.
[2024-10-11 06:36] LABS: Hematocrit 35.8 % (36.0-46.0); Hemoglobin 12.2 g/dL (12.2-16.2); Mean Corpuscular Hemoglobin 28.5 pg (28.0-32.0); Mean Corpuscular Volume 83.2 fL (80.0-100.0); Nucleated Red Blood Cells % 0.0 %
[2024-10-11 07:05] LABS: Alanine Aminotransferase 14 U/L (7-40); Albumin 3.9 g/dL (3.2-4.8); Alkaline Phosphatase 51 U/L (46-116); Anion Gap 11 (5-15); BUN/Creatinine Ratio 8.5 (10.0-20.0); Carbon Dioxide 21 mmol/L (20-31); Chloride 105 mmol/L (98-107); Potassium 3.9 mmol/L (3.5-5.1); Sodium 137 mmol/L (136-145)
[2024-10-11 07:08] LABS: Bilirubin, Total 1.6 mg/dL (0.2-1.0); Blood Urea Nitrogen 5 mg/dL (9-23); Calcium 7.6 mg/dL (8.7-10.4); Glucose 128 mg/dL (74-106); Total Protein 5.7 g/dL (5.7-8.2)
[2024-10-11] MEDS: PANTOPRAZOLE 40 MG/10 ML VIAL INJ IV SCH (09:27)
[2024-10-11] MEDS: ONDANSETRON HCL 4 MG/2 ML VIAL IV ONE (11:23)
[2024-10-11 12:33] LABS: Hematocrit 31.1 % (36.0-46.0); Hemoglobin 10.9 g/dL (12.2-16.2); Mean Corpuscular Hemoglobin 28.7 pg (28.0-32.0); Mean Corpuscular Volume 82.0 fL (80.0-100.0); Nucleated Red Blood Cells % 0.0 %
--- NOTE | 2024-10-11 16:26 | DVHPNRES ---
Progress Note Date Seen: Oct 11, 2024 Resident Creating Document: ERIN DOTSON RESIDENT Has the PT tested + for MRSA If YES, has PT been informed?: No Medical Necessity Reason Pt with a Central, PICC or Fol: Yes Reason for bowers catheter: Kevin. Abd Surgery Subjective Review of Systems Patient is a 23-year-old female, [id number], with past medical history of asthma prior ruptured ectopic with partial salpingectomy in July of 2024 who was brought via ambulance due to loss of consciousness. The patient was at work when she began to feel extreme abdominal pain and subsequently lost consciousness. She states that the abdominal pain originally began on September 26 for which she went to [place] 3 days before and was told she was however in the amniotic sac not be found in the ultrasound she was subsequently discharged. On day of presentation patient's refers generalized stabbing abdominal pain, with intensity of 10/10, that radiating to her vagina and rectum, without relieving factors, associated with nausea vomiting and shortness of breath. On evaluation in the ED patient was in acute distress, hypotensive, with pain to abdominal and suprapubic palpation. B-HCG test performed confirm . Initial labs show hemoglobin of 10.3 with subsequent decrease to 8.3 with hematocrit of 24.9, lactate of 3.8, and wbcs 11.4. Fluid resuscitation was initiated. Abdominal and transvaginal ultrasound showed a 2.1 cm slightly fluid- filled rounded structure within the left adnexa with complex fluid/blood within the cul de sac, Morison's pouch, and extending up to the perihepatic space. OBGYN was consulted and patient was taken to the OR for emergent diagnostic laparoscopic removal of ectopic , evacuation of hemoperitoneum with removal of 700cc, left salpingectomy, and lysis of adhesions. Due to blood loss from ruptured ectopic she required transfusion of 2 PRBCs. Additionally, blood cultures and urine culture to date and Zosyn was initiated. Patient seen at bedside. She states that she feel better, refers abdominal pain, shoulder pain, weakness, states she is passing gas, but is yet to have a bowel movement. On evaluation, patient was tachycardic, with pale mucosas, and pain to palpation in lower abdominal quadrants. Patient tried to stand up, but due to the pain she was unable to move to chair. .However per nurse, she later was able to get up and ambulate around her room. Labs today show hemoglobin of 12.2 post transfusion, heamtocrit of 39.8, wbcs of 10.2, lactate 1.2, urinalysis with no significant finding, blood culture and urine culture still pending Review of systems: Constitutional: Denies weight loss, fever and chills. HEENT: Denies changes in vision and hearing. Respiratory: Denies shortness of breath and cough Cardiovascular: Denies chest discomfort or palpitations GI: Refers abdominal and suprapubic pain, denies abdominal distention, abdominal pain, diarrhea : Denies dysuria and urinary frequency. Musculoskeletal: Refers right shoulder pain Skin: Denies rash and pruritus. Neurological: denies dizziness headache vision or hearing problems Patient reports: Feels better Objective vital signs Vital Sign Date Time Temp Pulse Resp B/P (MAP) Pulse Ox O2 Delivery O2 Flow Rate FiO2 10/11/24 13:00 98.2 87 17 109/73 (85) 98 98.2 10/11/24 08:00 Room Air* 0 21 Total Intake and Output 10/10/24 10/10/24 10/11/24 15:00 23:00 07:00 Intake Total 1000 ml 775 ml Output Total 3150 ml Balance 1000 ml -2375 ml medications Current Medications Medications Dose Ordered Sig/Bee Route Start Time Stop Time Status Last Admin Dose Admin Sodium Chloride 1,000 ml @ 120 mls/hr Q8H20M IV 10/10/24 22:45 10/11/24 14:48 120 MLS/HR Ondansetron HCl 4 mg Q4HP PRN IV 10/10/24 21:45 10/11/24 09:10 4 MG Pantoprazole Sodium 40 mg DAILY IV 10/11/24 10:00 10/11/24 09:27 40 MG Ondansetron HCl 4 mg Q4HP PRN IV 10/10/24 23:00 Morphine Sulfate 2 mg Q4HP PRN IV 10/10/24 23:00 10/11/24 09:11 2 MG Acetaminophen 500 mg Q6HP PRN PO 10/10/24 23:00 Sodium Chloride 1,000 ml @ 125 mls/hr Q8H IV 10/10/24 23:00 10/11/24 02:13 125 MLS/HR Acetaminophen/ Hydrocodone Bitart 1 tab Q4HP PRN PO 10/10/24 23:00 10/11/24 15:36 1 TAB Piperacillin Sod/ Tazobactam Sod 100 ml @ 25 mls/hr Q8HR IV 10/11/24 06:00 10/11/24 14:45 25 MLS/HR Examination General: The patient alert and oriented in person place and time. Patient following commands HEENT: Normocephalic, atraumatic, with pale mucous membrane Respiratory/pulmonary: Clear lungs bilaterally, vesicular murmurs present in almost all lung adame, no associated crackles or wheezes Abdomen: Abdomen nondistended, bandages covering surgicial incisions, pain to palpation in lower abdominal quadrants, no palpable masses. Extremities: there is no peripheral edema present at the lower extremities. Peripheral pulses 3+ radial right, 3+ radials soft. 3+ dorsalis pedis right. 3+ dorsalis pedis left Skin: No rashes or pruritus Neurological: Intact cranial nerves with no focal neurologic deficits laboratory and microbiology Laboratory Tests 10/11/24 12:02 10/11/24 04:38 Test 10/11/24 04:38 Range/Units Serum Glucose 128 H 74-106 mg/dL Problem List/Assessment/Plan Problem List/Assessment/Plan Assessment and Plan: Hypovolemic shock likely due to ruptured left ampullary ectopic with hemoperitoneum -Ultrasound- Within the left adnexa, there is a 2.1 cm slightly fluid filled rounded structure.e -continue IV normal saline -Zosyn IV q 8Hr -Pending blood culture, urine culture Acute Blood Loss Anemia secondary to rupture ectopic -status post 2 units blood transfusion -monitor CBC, BNP Lactic acidosis likely due to hypovolemic shock -Lactic acid 3.8> 1.8 -Continue IV normal saline Acute abdomen due to ruptured ectopic with hemoperitoneum DVT prophylaxis: SCD GI prophylaxis: Protonix Case discussed with Dr. Soto. Goals of care discussed with patient for 15 minutes. FULL CODE. Plan discussed with: Patient Date of Service: Oct 11, 2024 Billing Provider: ELENA SOTO MD Common Visit Codes: [id number] INP/OBS CARE(HIGH) ERIN DOTSON RESIDENT Oct 11, 2024 16:26 ELENA SOTO MD Oct 11, 2024 20:32
[2024-10-11 18:15] LABS: Hematocrit 34.4 % (36.0-46.0); Hemoglobin 11.5 g/dL (12.2-16.2); Mean Corpuscular Hemoglobin 27.7 pg (28.0-32.0); Mean Corpuscular Volume 82.3 fL (80.0-100.0); Nucleated Red Blood Cells % 0.0 %
[2024-10-11] MEDS ORDERED: VANCOMYCIN HCL 1000 MG VL IV ONE (20:22)
[2024-10-11] MEDS ORDERED: ETOMIDATE (2MG/ML) 20ML VIAL IV ONE (20:26)
[2024-10-12] VITALS (8 sets, daily range): BP systolic 107–118; BP diastolic 68–85; PULSE 78–109; RESP 18–23; TEMP 97.6–98.4; O2SAT 97–100
[2024-10-12 00:47] LABS: Hematocrit 27.5 % (36.0-46.0); Hemoglobin 9.7 g/dL (12.2-16.2); Mean Corpuscular Hemoglobin 28.4 pg (28.0-32.0); Mean Corpuscular Volume 80.3 fL (80.0-100.0); Nucleated Red Blood Cells % 0.0 %
[2024-10-12 05:51] LABS: Hematocrit 26.8 % (36.0-46.0); Hemoglobin 9.3 g/dL (12.2-16.2); Mean Corpuscular Hemoglobin 28.2 pg (28.0-32.0); Mean Corpuscular Volume 81.3 fL (80.0-100.0); Nucleated Red Blood Cells % 0.1 %
[2024-10-12 05:58] LABS: Sodium 142 mmol/L (136-145)
[2024-10-12 05:59] LABS: Anion Gap 7 (5-15); Carbon Dioxide 25 mmol/L (20-31)
[2024-10-12 06:04] LABS: Glucose 90 mg/dL (74-106)
[2024-10-12 06:05] LABS: BUN/Creatinine Ratio 8.8 (10.0-20.0); Blood Urea Nitrogen < 5 mg/dL (9-23); Chloride 110 mmol/L (98-107); Potassium 3.1 mmol/L (3.5-5.1)
[2024-10-12 06:06] LABS: Calcium 7.4 mg/dL (8.7-10.4)
[2024-10-12] MEDS: POTASSIUM EFFERVESENT TAB 25 MEQ PO ONE ×2 (06:31→15:18)
[2024-10-12 12:07] LABS: Hematocrit 26.9 % (36.0-46.0); Hemoglobin 9.4 g/dL (12.2-16.2); Mean Corpuscular Hemoglobin 28.6 pg (28.0-32.0); Mean Corpuscular Volume 81.6 fL (80.0-100.0); Nucleated Red Blood Cells % 0.1 %
[2024-10-12 13:37] LABS: Hematocrit 28.2 % (36.0-46.0); Hemoglobin 9.8 g/dL (12.2-16.2); Mean Corpuscular Hemoglobin 28.5 pg (28.0-32.0); Mean Corpuscular Volume 82.4 fL (80.0-100.0); Nucleated Red Blood Cells % 0.1 %
--- NOTE | 2024-10-12 15:43 | DVHPNRES ---
Progress Note Date Seen: Oct 12, 2024 Resident Creating Document: ERIN DOTSON RESIDENT Has the PT tested + for MRSA If YES, has PT been informed?: No Medical Necessity Reason Pt with a Central, PICC or Fol: No Subjective Review of Systems Patient is a 23-year-old female, [id number], with past medical history of asthma prior ruptured ectopic with partial salpingectomy in July of 2024 who was brought via ambulance due to loss of consciousness. The patient was at work when she began to feel extreme abdominal pain and subsequently lost consciousness. She states that the abdominal pain originally began on September 26 for which she went to [place] 3 days before and was told she was however in the amniotic sac not be found in the ultrasound she was subsequently discharged. On day of presentation patient's refers generalized stabbing abdominal pain, with intensity of 10/10, that radiating to her vagina and rectum, without relieving factors, associated with nausea vomiting and shortness of breath. On evaluation in the ED patient was in acute distress, hypotensive, with pain to abdominal and suprapubic palpation. B-HCG test performed confirm . Initial labs show hemoglobin of 10.3 with subsequent decrease to 8.3 with hematocrit of 24.9, lactate of 3.8, and wbcs 11.4. Fluid resuscitation was initiated. Abdominal and transvaginal ultrasound showed a 2.1 cm slightly fluid- filled rounded structure within the left adnexa with complex fluid/blood within the cul de sac, Morison's pouch, and extending up to the perihepatic space. OBGYN was consulted and patient was taken to the OR for emergent diagnostic laparoscopic removal of ectopic , evacuation of hemoperitoneum with removal of 700cc, left salpingectomy, and lysis of adhesions. Due to blood loss from ruptured ectopic she required transfusion of 2 PRBCs. Additionally, blood cultures and urine culture to date and Zosyn was initiated. On day one patient stated she feel better, referred abdominal pain, shoulder pain, weakness, passing gas with no bowel movements. On evaluation, she was tachycardic, with pale mucosas, and pain to palpation in lower abdominal quadrants. She later was able to get up and ambulate around her room. Labs showed hemoglobin of 12.2 post transfusion, heamtocrit of 39.8, wbcs of 10.2, lactate 1.2, and urinalysis with no significant finding. Patient seen at bedside. States that she feels better, slept well, pain has improved, able to ambulate, passing gas with no bowel movements, and refers vaginal bleeding with clots. Denies fever, chills, chest pain, palpitations, and weakness. Diet was advanced from clear liquids to mechanical soft diet. She continues on IV Zosyn. Labs today significant for hemoglobin of 9.3, hematocrit 26.8, platelets 106, potassium 3.1. Preliminary blood cultures show no growth at 24 hours. She was given potassium p.o. 50 mEq for repletion. Repeat CBC showed stable hemoglobin of 9.8 with hematocrit of 28.2. Follow-up potassium 3.3. She was given another potassium p.o. 50 mg for repletion. Possible discharge tomorrow. Review of systems: Constitutional: Denies weight loss, fever and chills. HEENT: Denies changes in vision and hearing. Respiratory: Denies shortness of breath and cough Cardiovascular: Denies chest discomfort or palpitations GI: Abdominal pain : Refers vaginal bleeding, Denies dysuria and urinary frequency. Musculoskeletal: Denies myalgias and joint pain Skin: Denies rash and pruritus. Neurological: denies dizziness headache vision or hearing problems Objective vital signs Vital Sign Date Time Temp Pulse Resp B/P (MAP) Pulse Ox O2 Delivery O2 Flow Rate FiO2 10/12/24 13:27 98.2 97 23 107/68 (81) 98 98.2 10/12/24 08:00 Room Air* 0 21 Total Intake and Output 10/11/24 10/11/24 10/12/24 15:00 23:00 07:00 Intake Total 100 ml 986 ml 2100 ml Output Total 850 ml Balance 100 ml 136 ml 2100 ml medications Current Medications Medications Dose Ordered Sig/Bee Route Start Time Stop Time Status Last Admin Dose Admin Pantoprazole Sodium 40 mg DAILY IV 10/11/24 10:00 10/12/24 10:40 40 MG Ondansetron HCl 4 mg Q4HP PRN IV 10/10/24 23:00 Morphine Sulfate 2 mg Q4HP PRN IV 10/10/24 23:00 10/11/24 09:11 2 MG Acetaminophen 500 mg Q6HP PRN PO 10/10/24 23:00 Sodium Chloride 1,000 ml @ 125 mls/hr Q8H IV 10/10/24 23:00 10/11/24 02:13 125 MLS/HR Acetaminophen/ Hydrocodone Bitart 1 tab Q4HP PRN PO 10/10/24 23:00 10/12/24 08:26 1 TAB Piperacillin Sod/ Tazobactam Sod 100 ml @ 25 mls/hr Q8HR IV 10/11/24 06:00 10/12/24 13:31 25 MLS/HR Examination General: The patient alert and oriented in person place and time. Patient following commands HEENT: Normocephalic, atraumatic, with pale mucous membrane Respiratory/pulmonary: Clear lungs bilaterally, vesicular murmurs present in almost all lung adame, no associated crackles or wheezes Abdomen: Abdomen nondistended, bandages covering surgicial incisions, pain to palpation in lower abdominal quadrants, no palpable masses. Extremities: there is no peripheral edema present at the lower extremities. Peripheral pulses 3+ radial right, 3+ radials soft. 3+ dorsalis pedis right. 3+ dorsalis pedis left Skin: No rashes or pruritus Neurological: Intact cranial nerves with no focal neurologic deficits laboratory and microbiology Laboratory Tests 10/12/24 13:10 10/12/24 04:53 Test 10/12/24 04:53 Range/Units Serum Glucose 90 74-106 mg/dL Microbiology Date/Time Source Procedure Growth Status 10/10/24 21:26 Voided Urine Urine Culture - Preliminary Resulted 10/10/24 20:49 Blood Blood Culture - Preliminary NO GROWTH AFTER 24 HOURS OF INCUBATION. Resulted Problem List/Assessment/Plan Problem List/Assessment/Plan Assessment and Plan: Hypovolemic shock likely due to ruptured left ampullary ectopic with hemoperitoneum -Ultrasound- Within the left adnexa, there is a 2.1 cm slightly fluid filled rounded structure.e -continue IV normal saline -Zosyn IV q 8Hr -Pending blood culture, urine culture Acute Blood Loss Anemia secondary to rupture ectopic -status post 2 units blood transfusion -monitor CBC, BNP Lactic acidosis likely due to hypovolemic shock -Lactic acid 3.8> 1.8 -Continue IV normal saline Acute abdomen due to ruptured ectopic with hemoperitoneum Hypokalemia, 3.1 -Potassium PO 50 mEq DVT prophylaxis: SCD GI prophylaxis: Protonix Case discussed with Dr. Bray. Goals of care discussed with patient for 15 minutes. FULL CODE. Plan discussed with: Patient My Orders My Orders Orders - ERIN DOTSON Procedure Category Date Status Time Mechanical Soft Diet DIET 10/12/24 Transmitted Breakfast Date of Service: Oct 12, 2024 Billing Provider: ELENA BRAY MD Common Visit Codes: [id number] INP/OBS CARE(HIGH) ERIN DOTSON Oct 12, 2024 15:43 ELENA BRAY MD Oct 12, 2024 16:31
[2024-10-13 01:00] VITALS: BP 120/83; PULSE 98; RESP 19; TEMP 98.4; O2SAT 96
[2024-10-13 05:00] VITALS: BP 107/67; PULSE 100; RESP 18; TEMP 97.8; O2SAT 98
[2024-10-13] MEDS: POTASSIUM EFFERVESENT TAB 25 MEQ PO ONE (06:54)
[2024-10-13 08:00] VITALS: PULSE 74; PULSE 91; RESP 18; O2SAT 98
[2024-10-13 08:01] LABS: Hematocrit 29.4 % (36.0-46.0); Hemoglobin 10.1 g/dL (12.2-16.2); Mean Corpuscular Hemoglobin 28.3 pg (28.0-32.0); Mean Corpuscular Volume 82.3 fL (80.0-100.0); Nucleated Red Blood Cells % 0.2 %
[2024-10-13 09:30] VITALS: BP 119/78; PULSE 101; RESP 19; TEMP 98.5; O2SAT 99
[2024-10-13 13:00] VITALS: BP 110/71; PULSE 94; RESP 17; TEMP 98.1; O2SAT 96
--- NOTE | 2024-10-13 17:28 | DVHDSRES ---
Discharge Summary Date of Admission Resident Creating Document: ERIN DOTSON RESIDENT Oct 10, 2024 at 21:33 Date of Discharge: Oct 13, 2024 Admitting Diagnosis Severe abdominal pain followed by loss of consciousness Labs/Diagnostic Data: Laboratory Results Test 10/13/24 07:37 10/12/24 06:35 10/12/24 04:53 10/11/24 04:38 White Blood Count 5.2 10^3/uL (4.4-10.8) Red Blood Count 3.57 10^6/uL (4.0-5.20) Hemoglobin 10.1 g/dL (12.2-16.2) Hematocrit 29.4 % (36.0-46.0) Mean Corpuscular Volume 82.3 fL (80.0-100.0) Mean Corpuscular Hemoglobin 28.3 pg (28.0-32.0) Mean Corpuscular Hemoglobin Concent 34.4 g/dL (32.0-36.0) Red Cell Distribution Width 14.4 % (11.8-14.3) Platelet Count 222 10^3/uL (140-450) Mean Platelet Volume 6.7 fL (6.9-10.8) Neutrophils (%) (Auto) 44.8 % (37.0-80.0) Lymphocytes (%) (Auto) 46.1 % (10.0-50.0) Monocytes (%) (Auto) 7.2 % (0.0-12.0) Eosinophils (%) (Auto) 1.6 % (0.0-7.0) Basophils (%) (Auto) 0.3 % (0.0-2.0) Neutrophils # (Auto) 2.3 10 ^3/uL (1.6-8.6) Lymphocytes # (Auto) 2.4 10 ^3/uL (0.4-5.4) Monocytes # (Auto) 0.4 10 ^3/uL (0-1.3) Eosinophils # (Auto) 0.1 10 ^3/uL (0-0.8) Basophils # (Auto) 0 10 ^3/uL (0-0.2) Nucleated Red Blood Cells 0.2 % Potassium Level 4.2 mmol/L (3.5-5.1) Magnesium Level 1.9 mg/dL (1.6-2.6) Sodium Level 142 mmol/L (136-145) Chloride Level 110 mmol/L (98-107) Carbon Dioxide Level 25 mmol/L (20-31) Anion Gap 7 (5-15) Blood Urea Nitrogen < 5 mg/dL (9-23) Creatinine 0.57 mg/dL (0.550-1.02) Glomerular Filtration Rate Calc 129 mL/min (>90) BUN/Creatinine Ratio 8.8 (10.0-20.0) Serum Glucose 90 mg/dL (74-106) Calcium Level 7.4 mg/dL (8.7-10.4) Lactic Acid Level 1.2 mmol/L (0.4-2.0) Total Bilirubin 1.6 mg/dL (0.2-1.0) Aspartate Amino Transferase (AST) 16 U/L (13-40) Alanine Aminotransferase (ALT) 14 U/L (7-40) Alkaline Phosphatase 51 U/L (46-116) Total Protein 5.7 g/dL (5.7-8.2) Albumin 3.9 g/dL (3.2-4.8) Test 10/10/24 21:26 10/10/24 21:19 10/10/24 17:58 Urine Color Light-yellow (Yellow) Urine Clarity Clear (Clear) Urine pH 6.0 (5.0-9.0) Urine Specific [place] 1.025 (1.001-1.035) Urine Protein Negative (Negative) Urine Ketones 2+ (Negative) Urine Blood Negative /uL (Negative) Urine Nitrite Negative (Negative) Urine Bilirubin Negative (Negative) Urine Urobilinogen Normal mg/dL (Negative) Urine Leukocyte Esterase 2+ /uL (Negative) Urine RBC 1 /hpf (0 - 4) Urine Microscopic WBC 3 /HPF (0-5) Urine Squamous Epithelial Cells Few /hpf (<5) Urine Bacteria None seen /hpf (None Seen) Urine Mucus Few (None Seen) Urine Glucose Normal mg/dL (Normal) Urine Test Positive (Negative) Prothrombin Time 12.0 sec (9.3-11.8) Prothrombin Time INR 1.15 (0.9-1.15) Activated Partial Thromboplast Time 21.7 SEC (24.5-34.5) Beta HCG, Quantitative 9159.0 mIU/mL (1.5-4.2) Other Laboratory Tests 10/13/24 07:37 7/9/25 04:53 Brief Hx & Hospital Course: Patient is a 23-year-old female, [id number], with past medical history of asthma and prior ruptured ectopic with partial salpingectomy in July of 2024, who was brought via ambulance due to loss of consciousness. The patient was at work when she began to feel extreme abdominal pain and subsequently lost consciousness. She states that the abdominal pain originally began on September 26 for which she went to [place] and was told she was , however the gestational sac not be found on ultrasound, she was subsequently discharged. On day of presentation, patient refers generalized stabbing abdominal pain, with intensity of 10/10, radiating to her vagina and rectum, without relieving factors, associated with nausea, vomiting, and shortness of breath. On evaluation in the ED, patient was in acute distress, hypotensive, with pain to abdominal and suprapubic palpation. B-HCG test performed confirmed . Initial labs show hemoglobin of 10.3 with subsequent decrease to 8.3 with hematocrit of 24.9, lactate of 3.8, and wbcs 11.4. Fluid resuscitation was initiated. Abdominal and transvaginal ultrasound showed a 2.1 cm slightly fluid- filled rounded structure within the left adnexa with complex fluid/blood within the cul de sac, Morison's pouch, and extending up to the perihepatic space. OBGYN was consulted and patient was taken to the OR for emergent diagnostic laparoscopic removal of ectopic , evacuation of hemoperitoneum with removal of 700cc, left salpingectomy, and lysis of adhesions. Due to blood loss from ruptured ectopic she required transfusion of 2 PRBCs. Additionally, blood cultures and urine cultures were taken and Zosyn was initiated. On day one, patient stated she felt better, referred abdominal pain, shoulder pain, weakness, passing gas with no bowel movements. On evaluation, she was tachycardic, with pale mucosa, and pain to palpation in lower abdominal quadrants. She later was able to get up and ambulate around her room. Labs showed hemoglobin of 12.2 post transfusion, heamtocrit of 39.8, wbcs of 10.2, lactate 1.2, and urinalysis with no significant finding. On day two, ambulated around her room with minimal difficulty, tolerated to soft mechanical diet, continued to pass gas without bowel movement, and referred vaginal bleeding with clots. Labs show hemoglobin 9.3, hematocrit 26.8, platelets 106, and potassium of 3.1. Oral potassium was given for repletion, however she still hypokalemic on follow up labs. On evaluation today, patient states she feels well, abdominal pain has improved, vaginal bleeding has increased, is eating, and passing gas. Labs today show hemoglobin 10.1, hematocrit 29.4, potassium 4.2, blood cultures show no growth at 48 hours, and urine culture with no significant finding. Patient is considered stable for discharge home with orders to follow up with PCP and ehs teacher in 1-2 weeks. Patient is informed and states she understands. Physical Exam on the day of discharge: General: The patient alert and oriented in person place and time. Patient following commands HEENT: Pale. Normocephalic, atraumatic, moist mucous membrane Respiratory/pulmonary: Clear lungs bilaterally, no associated crackles or wheezes Cardiovascular: Normal rate, normal S1 and S2 Abdomen: Abdomen nondistended, surgical incisions in lower abdominal quadrants clean and dry covered by bandages, minor pain to palpation in lower abdominal quadrants, no palpable masses. Extremities: there is no peripheral edema present at the lower extremities. Peripheral pulses 3+ radial right, 3+ radials soft. 3+ dorsalis pedis right. 3+ dorsalis pedis left Skin: No rashes or pruritus Neurological: Intact cranial nerves with no focal neurologic deficits Goals of care discussed with the patient for 20 minutes; full code. Discussed with Dr. Baer Consults/Reason for consult OBGYN was consulted for management of ruptured ectopic . Operations or Procedures Patient: ALINA RUBY Acct: [id number] : 2000 Loc: [facility] Age/Sex: 23/F Room: [address] [place] [address] / Bed: A Attending Phy: ANDRIA PACHECO RESIDENT Operative Report - 2 Report Details Date: 10/10/24 Preop Diagnosis: A ruptured ectopic , hypovolemic shock, acute abdomen pelvis Postop Diagnosis: Left ampullary region ectopic ruptured active bleeding, 700 cc hemoperitoneum, tissue consistent with ectopic/decidua Surgeon: Ashlyn Pelletier Anesthesiologist: Ever SELLERS Anesthesia: General Drains: Mendoza catheter Implant: None Consent: The patient was informed of the risks and benefits of the procedure. These include but are not limited to complications of anesthesia, postoperative infection, incomplete relief of symptoms, recurrence of symptoms, damage to blood vessels, nerves and tendons, deep venous thrombosis, pulmonary embolism and possible need for repeat surgery in the future. Complications: None Estimated Blood Loss: 50 cc Hemoperitoneum pre-existing a 700 cc Fluids: See anesthesia log Findings: Ruptured left ampullary region fallopian tube ectopic it appeared to be from the same size as her previous ectopic as there was Rosy remnant of tube left. Pin to seal colonic adhesions filmy left adnexa Indications for Surgery: Acute abdomen, ruptured ectopic hemoperitoneum Name of Procedure Performed Diagnostic laparoscopy remove ectopic evacuation of hemoperitoneum left salpingectomy, left ampullary ectopic removal, lysis of adhesions Procedure Details Procedure Details: Patient taken the operating placed in supine position general anesthesia performed without difficulty she was prepped draped sterile fashion and gently placed in Ajith strips exam; exam under anesthesia shows cervix closed no bleeding; the anterior cervical lip was grasped with a sharp tooth tenaculum u terus sounded 7 cm ; I was a easily able to pass a Kroner uterine manipulator without dilation to 6 cm. Perineum draped gloves changed and gown changed and attention turned to the abdomen infraumbilical incision was made with 11 blade rectus fascia tented anteriorly with towel clamp Veress needle placed water test flowed easily ; pneumoperitoneum 5 L performed. 5 mm initial Visiport bladeless was then placed under direct visualization without any evidence of internal organ damage. It was immediately evident that she had proximally 700 cc hemoperitoneum ; at this point2 additional ports were placed under direct visualization all bladeless right and left lower quadrants. The initial 5 mm umbilical port was extended and exchanged 12 port under direct visualization . Camera was placed through 5 mm port any atraumatic grasper was placed through the other and alternating with suction irrigation hemoperitoneum removed; it was evident this point that she had left fallopian tube ruptured ectopic ; which appeared consistent with a previous partial left salpingectomy. The remaining portion fallopian tube was severely damaged and actively bleeding elected at this point to fire Endo-NARENDRA 60 vascular load across the mesenteric portion of the tube effectively removing the remnant tube with the what appeared to be ectopic. I also found some tissue on the omentum which was consistent with possible decidual tissue and/or ectopic. Specimens were portion of the left tube as well as ectopic tissue. A staple margin was then clipped with large clips to assure hemostasis was again copiously irrigated some lysis of adhesions was performed from her previous surgery and anterior cul-de-sac as well as right and left cul-de-sac other structures in the abdomen. Pictures were taken before and after; Normal bowel liver and stomach edge. This point we placed a specimen then I flat 10 mm endobag and it was brought out through the 12 port 12 port was closed with Jose Antonio Lyons 0 Vicryl effectively closing rectus fascia. Subcu 4-0 Vicryl was then used to close the skin is well as Dermabond placed. Patient will have an abdominal binder placed in recovery room and she will be stabilized. She was given 1 unit packed RBCs intraoperatively. She will be getting serial CBCs and close monitoring on tele postoperatively. I then met Andrea her also obtaining his phone number [phone]; we discussed findings and procedure were discussed emphasizing importance of early follow up and potential serial quant HCG; she will need to be seen postoperatively on a weekly basis if no villi on pathology. Re-emphasized the fact that they should avoid 3 months and that her risk for ectopic use initially increased having 2 previous. Given the fact that I am part-time here on the weekend covering [facility]. She will be handed off to Dr. Hi and the hospitalist team in AM . The postop potential complications were reviewed as well not limited to severe pain excessive bleeding decreased level of consciousness or fever persistent over 100 if these should occur she is to be seen in the ER immediately. Counseled her to avoid at least 3 months and also if she were to get she should be seen immediately to rule out ectopic. Specimen: Left partial Fallopian tube; ectopic decidual appearing tissue. Condition Guarded Disposition 2 Tele CLAYTON PELLETIER DO Oct 10, 2024 22:46 DICTATED BY:CLAYTON PELLETIER DO DICTATED DATE/TIME:10/10/242245 ELECTRONICALLY SIGNED BY:CLAYTON PELLETIER DO 10/11/24 0018 ELECTRONICALLY CO-SIGNED BY: Condition at Discharge: Stable Final Diagnosis/Problems List Hypovolemic shock likely due to ruptured left ampullary ectopic with hemoperitoneum Acute Blood Loss Anemia secondary to ruptured ectopic status post blood transfusion Lactic acidosis likely due to hypovolemic shock Acute abdomen due to ruptured ectopic with hemoperitoneum Hypokalemia, resolved Discharge Disposition: Home Discharge Instruct/Medications Diet: Regular Activity: No Restrictions, As Tolerated Follow Up/Referral: Follow up with PCP in 1-2 weeks Follow up with ehs teacher in 1-2 weeks Scheduled Ferrous Sulfate (Ferosul), 1 TAB PO DAILY, (Reported) Discharge Statement: "Patient was advised to return to the ER or call 911 if any headaches, dizziness, shortness of breath, chest pain, abdominal pain, bleeding, fevers, or worsening of medical condition. Patient was counseled about treatment plan, medications, possible side effects, patientverbalized understanding. All questions were answered to the best of my ability. This discharge took greater then 30 minutes in planning, reviewing documentation, counseling the patient, and discussing with other team members." ASSESSMENT ASSESSMENT Assessment Hypovolemic shock secondary to ruptured L. ampullary ectopic Addendum Addendum Addendum I was physically present for the henson portions of the service provided to patient by THE RESIDENT. I have reviewed the documentation, discussed the case with resident and agree with the resident's documentation except as noted. Also the patient's clinical case was discussed with the patient's nurse. This medical document was created using an electronic medical record system with computerized dictation system. Although this document has been carefully reviewed, there might still be some phonetic and typographical errors. These areas are purely typographical due to imperfections of the software programs, and do not reflect any compromise in the patient's medical care. Late signature. Date of Service: Oct 13, 2024 Billing Provider: ANTONI BAER MD Common Visit Codes: 51053-ATE/OBS DISCH DAY >30min Secondary Visit Codes: [id number] CARE PLAN 30 MINUTES (20 minutes) ERIN DOTSON RESIDENT Oct 13, 2024 17:28 ANTONI BAER MD Oct 13, 2024 19:16
== END 2024-10-13 15:00 | disposition home or self-care (01) | DRG 547 ==
LOC: EDBD 17:25 → ER 17:25 → OVERFLOW 21:33 → TELE-CENTR 10-11 01:12
PROVIDERS: ADMIT Internal Medicine; ATTEND Internal Medicine
PROC: 0UT64ZZ Resection of Left Fallopian Tube, Percutaneous Endoscopic Approach (ICD-10-PCS; 2024-10-10)
PROC: 0W9G4ZZ Drainage of Peritoneal Cavity, Percutaneous Endoscopic Approach (ICD-10-PCS; 2024-10-10)
PROC: 30233N1 Transfusion of Nonautologous Red Blood Cells into Peripheral Vein, Percutaneous Approach (ICD-10-PCS; 2024-10-10)
PROC: 10T24ZZ Resection of Products of Conception, Ectopic, Percutaneous Endoscopic Approach (ICD-10-PCS; principal; 2024-10-10 22:36)
DX: O00.102 Left tubal pregnancy without intrauterine pregnancy (principal); K66.1 Hemoperitoneum; E87.20 Acidosis, unspecified; D62 Acute posthemorrhagic anemia; R10.0 Acute abdomen; J45.909 Unspecified asthma, uncomplicated; E87.6 Hypokalemia; K66.0 Peritoneal adhesions (postprocedural) (postinfection); Z83.3 Family history of diabetes mellitus; Z87.59 Personal history of other complications of pregnancy, childbirth and the puerperium
CPT/HCPCS: 36415; 71045; 76801; 76817; 80048; 80053; 81001; 81025; 83605; 83735; 84132; 84702; 85014; 85018; 85025; 85610; 85730; 86850; 86900; 86901; 86920; 87040; 87086; 93005; 96365; 96375; G0378; J0131; J1100; J2003; J2250; J2405; J2470; J2543; J2704; J3490